=== PATIENT | male | born 1970 | race Caucasian/White ===

== ENCOUNTER 2024-08-06 07:57 | Emergency (ER) | payer BC, SELFPAY ==
[2024-08-06 08:16] VITALS: BP 141/101
[2024-08-06 08:19] VITALS: BP 140/100
[2024-08-06 09:30] VITALS: BMI 41.2
[2024-08-06] MEDS: DUONEB 3 ML INH (09:35)
[2024-08-06] MEDS: DELTASONE 50 MG PO (09:35)
[2024-08-06] MEDS: ROBITUSSIN DM 10 ML PO (09:35)
[2024-08-06 10:00] VITALS: BP 134/103
[2024-08-06 10:11] LABS: COVID-19 Antigen Negative (Negative)
--- NOTE | 2024-08-06 10:19 | ED.GENMED ---
History of Present Illness
General
Chief Complaint: Cold/Flu/URI Symptoms
Source: patient
Exam Limitations: none
Time Seen by Provider: 08/06/24 09:02
Nursing documentation reviewed up to this point in time: agreed with
History of Present Illness
History of Present Illness:
Patient presents to ED secondary to persistent cough, shortness of breath, 'chest congestion', and 'wheezing' over the past 3 days. Denies fever or chills. Denies nausea, vomiting, or diarrhea. Denies headache. Denies sore throat. Denies rash.
Denies neck pain. Patient does report having had COVID GI infection', which affected entire family during [place] break, which now has resolved.
Past History
Past History
ED Past Medical History: None
ED Past Surgical History: None
Social History
Tobacco: Non-smoker
Personal:
Living: with family
Family History
Family History: Negative Diabetes, Hypertension, Early CAD, CAD, Asthma or Cancer
Review of Systems
Review of Systems
Allergies reviewed?: Yes
All Other Systems: ROS reviewed and negative except as documented in HPI and ROS
Constitutional: Reports no symptoms; Denies fever or chills
EENT: Reports no symptoms
Respiratory: Reports cough and trouble breathing
Cardiac: Reports no symptoms; Denies chest pain
ABD/GI: Reports no symptoms; Denies vomiting or diarrhea
: Reports no symptoms
Musculoskeletal: Reports no symptoms
Skin: Reports no symptoms
Neurological: Reports no symptoms
Phy Exam
Physical Exam
Physical Exam:
Physical Exam
General: no apparent distress, not acutely ill. afebrile
Head: nc/at. eomi
Neck: supple. no meningeal signs.
Heart: s1/s2 regular rate and rhythm, no murmur. equal radial pulses.
Lungs: mild respiratory distress. rhonchi bilaterally with faint expiratory wheezing
Abdomen: normal bowel sounds. not tender.
Neuro: alert and oriented. no focal neurological deficits
Skin: no rash
Psychiatric: well kept. interactive and cooperative
Extremities: no edema. no calf tenderness
Course
Orders/Labs/Results
Orders:
Orders
08/06/24 07:58
Electrocardiogram (*1) Urgent
Reason for Study: Chest Pain
08/06/24 07:59
EKG- Treatment ONCE
08/06/24 09:10
Guaifenesin/Dextromethorphan [Robitussin Dm] 10 ml PO NOW STA
Ipratropium/Albuterol Sulfate [Duoneb] 3 ml INH R NOW STA
Prednisone [Deltasone] 50 mg PO NOW STA
CR Chest - 2 Views Urgent
Comment:
Reason For Exam: cough/sob
08/06/24 09:33
COVID-19 Antigen Urgent
Source: Nasal Swab
Vital Signs
Initial and Last Documented VS:
Initial Vital Signs
Temp Pulse Resp BP Pulse Ox
98.2 F 81 18 141/101 96
08/06/24 08:16 08/06/24 08:16 08/06/24 08:16 08/06/24 08:16 08/06/24 08:16
Last Documented Vital Signs
Temp Pulse Resp BP Pulse Ox
98.0 F 82 16 134/103 93
08/06/24 08:19 08/06/24 08:19 08/06/24 08:19 08/06/24 10:00 08/06/24 10:15
MDM/Problems Addressed
MDM/Problems Addressed:
CXR: no acute findings, on my prelim reading. History exam consistent with likely viral respiratory infection versus acute bronchitis, with wheezing. As such, patient will be prescribed albuterol inhaler along with short course of prednisone.
Patient will be given prescription for Z-Dinesh, to be filled in 48 hours, if symptoms persist.
*Critical Care Note
Total Time (30-74mins, 75-104mins- exclusive of procedures): Not Applicable
ED Attending Note
-
Portions of this chart may have been created with voice recognition software.� Occasional wrong word or��sound alike� substitutions may have occurred due to the inherent limitations of voice recognition software.
Discharge Plan
Departure
Patient Disposition: Home (Routine Discharge)
Date of Disposition: 08/06/24
Time of Disposition: 10:27
Patient with high blood pressure during this ER visit?: Yes
Condition: Good
Discharge Problem:
Acute bronchitis
Instructions: Acute Bronchitis, Adult (DC)
Prescriptions:
New
prednisone 50 mg Tablet
50 mg PO DAILY Qty: 2 0RF
albuterol sulfate [Ventolin HFA] 90 mcg/actuation HFA aerosol inhaler
2 puff inhalation Q6H PRN (Reason: shortness of breath or wheezing) Qty: 8.5 0RF
azithromycin [Zithromax] 250 mg tablet
250 mg PO DAILY 6 Days Qty: 6 0RF
No Action
No Current Medications
azithromycin [Zithromax] 250 MG tablet
250 mg PO UD Qty: 1 0RF
prednisone 50 MG tablet
50 mg PO DAILY Qty: 5 0RF
albuterol sulfate 90 MCG/PUFF HFA aerosol inhaler
1 puff inhalation R Q6HPRN PRN (Reason: wheezing) Qty: 1 0RF
prednisone 20 MG tablet
40 mg PO DAILY Qty: 10 0RF
albuterol sulfate [Proventil HFA] 90 MCG/PUFF HFA aerosol inhaler
1 puff inhalation Q6HPRN PRN (Reason: sob) Qty: 1 0RF
Referrals:
Wesley Yanes DO [Family Provider] -
Activity Restrictions/Additional Instructions:
As discussed, please follow-up with your primary care physician for reevaluation. Your prescriptions have been sent electronically to [facility] pharmacy in [place].
Interventions
Interventions:
*Risk Screen - Suicide Last Done: 08/06/24 08:19
*General Assessment Last Done: 08/06/24 09:31
*Neglect/Abuse Screening Last Done: 08/06/24 08:19
*ED COVID-19 Vaccine History Last Done: 08/06/24 09:31
*Nursing Disposition Last Done: 08/06/24 10:54
ED- Pulmonary Assessment Last Done: 08/06/24 10:53
Discharge Date and Time
Discharge Date/Time: 08/06/24 10:54
Print Language: LUX[place]
== END 2024-08-06 10:54 | disposition home or self-care (01) ==
LOC: EMR 07:57
PROVIDERS: EMERGENCY PHYSICIAN Emergency Medicine; FAMILY PHYSICIAN Family Medicine
DX: J20.9 Acute bronchitis, unspecified (principal); Z82.49 Family history of ischemic heart disease and other diseases of the circulatory system
CPT/HCPCS: 99283; 94640; 71046; 87811; 93005

== ENCOUNTER 2024-12-18 06:22 | Day surgery (SDC) | payer BC, SELFPAY | END 2024-12-18 13:55 | disposition home or self-care (01) | LOC: GI 06:22 | PROVIDERS: ATTENDING PHYSICIAN Internal Medicine Gastroenterology | DX: Z12.11 Encounter for screening for malignant neoplasm of colon (principal); K57.30 Diverticulosis of large intestine without perforation or abscess without bleeding; K64.8 Other hemorrhoids; D12.2 Benign neoplasm of ascending colon | CPT/HCPCS: 45380; 88305 ==

== ENCOUNTER 2025-01-15 15:15 | Emergency (ER) | payer BC, SELFPAY ==
[2025-01-15 15:31] VITALS: BP 135/87
--- NOTE | 2025-01-15 18:17 | ED.GENMED ---
History of Present Illness
General
Chief Complaint: Anal/Rectal Problem
Time Seen by Provider: 01/15/25 16:57
History of Present Illness
History of Present Illness:
Patient is a 31-year-old male with history of hemorrhoids presenting to the emergency department with a hemorrhoid. Patient states that multiple hemorrhoids before that usually self resolved. However the symptoms ongoing for 3 days. He doctors
primary care doctor yesterday and was given a hydrocortisone cream. It has helped however he still is symptomatic. No fevers chills. No drainage. He does use a stool softener. No sitz bath. No blood in his stool. No rectal bleeding.
Past History
Past History
ED Past Medical History: None
ED Past Surgical History: None
Social History
Tobacco: Non-smoker
Personal:
Living: with family
Family History
Family History: Negative Diabetes, Hypertension, Early CAD, CAD, Asthma or Cancer
Phy Exam
Physical Exam
Physical Exam:
GENERAL: in no acute distress
HEENT: normocephalic, extraocular movements intact
RESPIRATORY: no respiratory distress
CARDIOVASCULAR: regular rate and rhythm
ABDOMEN/: Chaperoned by ECT - 1.5cm external hemorrhoid that is not thrombosed, no drainage, no associated swelling or redness, smaller external hemorrhoid at 12 o clock position
NEUROLOGIC: awake and alert, moves all extremities
SKIN: warm
Course
Orders/Labs/Results
Orders:
Orders
01/15/25 18:06
Lidocaine 2% [Lidocaine Uro-Jet 2%] 1 syringe TOPICAL NOW STA
Vital Signs
Initial and Last Documented VS:
Initial Vital Signs
Temp Pulse Resp BP Pulse Ox
98.8 F 86 16 135/87 95
01/15/25 15:31 01/15/25 15:31 01/15/25 15:31 01/15/25 15:31 01/15/25 15:31
Last Documented Vital Signs
Temp Pulse Resp BP Pulse Ox
98.8 F 86 16 135/87 95
01/15/25 15:31 01/15/25 15:31 01/15/25 15:31 01/15/25 15:31 01/15/25 15:31
MDM/Problems Addressed
Differential Diagnosis Includes:
Patient is a 54-year-old man coming to the emergency department with a hemorrhoid. Vitals are unremarkable and exam shows external hemorrhoid that is not thrombosed. Will place numbing cream on it currently. Patient has been prescribed
hydrocortisone already. Will change the prescription to a combination cream. Patient advised to use which he has a pad sitz bath. He will follow-up with his primary care doctor
*Critical Care Note
Total Time (30-74mins, 75-104mins- exclusive of procedures): Not Applicable
ED Attending Note
-
Portions of this chart may have been created with voice recognition software.� Occasional wrong word or��sound alike� substitutions may have occurred due to the inherent limitations of voice recognition software.
Discharge Plan
Departure
Patient Disposition: Home (Routine Discharge)
Date of Disposition: 01/15/25
Time of Disposition: 18:13
Patient with high blood pressure during this ER visit?: No
Discharge Problem:
External hemorrhoid
Instructions: Hemorrhoids (DC), How to Do a Sitz Bath
Prescriptions:
New
lidocaine HCl-hydrocortison ac 3 %-2.5 % (7 gram) gel
1 applic DE BID Qty: 7 0RF
No Action
No Current Medications
azithromycin [Zithromax] 250 MG tablet
250 mg PO UD Qty: 1 0RF
prednisone 50 MG tablet
50 mg PO DAILY Qty: 5 0RF
albuterol sulfate 90 MCG/PUFF HFA aerosol inhaler
1 puff inhalation R Q6HPRN PRN (Reason: wheezing) Qty: 1 0RF
prednisone 20 MG tablet
40 mg PO DAILY Qty: 10 0RF
albuterol sulfate [Proventil HFA] 90 MCG/PUFF HFA aerosol inhaler
1 puff inhalation Q6HPRN PRN (Reason: sob) Qty: 1 0RF
prednisone 50 mg Tablet
50 mg PO DAILY Qty: 2 0RF
albuterol sulfate [Ventolin HFA] 90 mcg/actuation HFA aerosol inhaler
2 puff inhalation Q6H PRN (Reason: shortness of breath or wheezing) Qty: 8.5 0RF
azithromycin [Zithromax] 250 mg tablet
250 mg PO DAILY 6 Days Qty: 6 0RF
Referrals:
Wesley Yanes DO [Family Provider, Family Practice]
Activity Restrictions/Additional Instructions:
You have been evaluated in the Emergency Department today for your rectal pain. Your evaluation has revealed that your symptoms are due to hemorrhoids. You can apply hemorrhoid cream, which is available over the counter, and do sitz baths to soothe
the area. Stay well hydrated, eat a high fiber diet, and take stool softeners- you should not strain on the toilet. I did prescribe you a cream. Please buy which danie pads [id number].
Please follow up with your primary care physician within two days.
Return to the Emergency Department if you experience worsening bleeding, feel lightheaded, have shortness of breath, have headache, feel weak, have fever, or for any other concerning symptoms.
Thank you for choosing us for your care.
Interventions
Interventions:
*Risk Screen - Suicide Last Done: 01/15/25 15:31
*General Assessment Last Done: 01/15/25 15:31
*Neglect/Abuse Screening Last Done: 01/15/25 15:31
*ED- Fall Risk Assessment Last Done: 01/15/25 15:31
*ED COVID-19 Vaccine History Last Done: 01/15/25 15:31
WE-Mibuxn-Lxzlotqxyl Assessment Last Done: 01/15/25 16:55
ED-Skin Assessment Last Done: 01/15/25 16:54
Discharge Date and Time
Print Language: [id number]
[2025-01-15] MEDS: LIDOCAINE URO-JET 2% 1 SYRINGE TOPICAL (18:27)
== END 2025-01-15 18:43 | disposition home or self-care (01) ==
LOC: EMR 15:15
PROVIDERS: EMERGENCY PHYSICIAN Student in an Organized Health Care Education/Training Program; FAMILY PHYSICIAN Family Medicine
DX: K64.4 Residual hemorrhoidal skin tags (principal); Z87.19 Personal history of other diseases of the digestive system
CPT/HCPCS: 99282